=== PATIENT | female | born 1970 | race Caucasian/White ===

== ENCOUNTER → 2016-08-28 | Outpatient (CLI) | payer OTHER ==
[~2016-08-28] MED LIST: ULTRAM PO; VOLTAREN50 MG PO
--- NOTE | ~2016-08-28 | MY29 ---
[facility] A Service of [facility] & [facility] RADIOLOGY TEXT RESULTS PATIENT: BETTE BRANHAM LOCATION: [facility] : 72 UNIT #: [id number] AGE: [address]: Alberto Boyle MD SEX: F ORDER DR: [id number] [facility] [address] [place], [place] [address] [id number] O MR#: [id number] Acc #: [id number] NAME: BETTE BRANHAM : 1970 SEX: F STUDY DATE/TIME: 08/28/2016 13:39 UNIT: [facility] ROOM: STUDY DESCRIPTION: MY PARRIS SCREENING W/ CAD BILAT Attending Physician: Alberto Boyle M.D. Referring Physician: Alberto Boyle M.D. Ordering Physician: Alberto Boyle M.D. Primary Care Physician: Alberto Boyle M.D. MEDICAL IMAGING REPORT This report is preliminary unless electronic signature is present EXAM Digital screening mammogram 08/28/2016. [facility] HISTORY 46-year-old woman positive family history, mother age 65. Patient presently on hormones. Annual screening. COMPARISON: 04/01/2015 FINDINGS Digital imaging of each breast was completed utilizing screening protocol. Review includes FDA-approved CAD device. Breast parenchyma is moderately dense with subareolar duct prominence in each breast. Focal suggestion of a stellate opacity centrally located left breast and visualized on the MLO projection only. I expect this represents summation artifact. It will require additional imaging however to include an exaggerated craniocaudal view, true lateral projection and high-resolution spot views. Target ultrasound will be performed if indicated at the time. Fibroglandular opacities in the right breast are stable. IMPRESSION Incomplete mammographic evaluation. Additional left breast imaging is recommended. See full report with recommendations. Patients over the age of 40 are entered into a reminder system with target due date for the next mammogram. A result letter will also be sent to the patient. BIRADS: 0 - Incomplete Needs additional imaging evaluation and/or prior mammograms for comparison. Additional left breast imaging recommended. [facility] A Service of [facility] & [facility] RADIOLOGY TEXT RESULTS PATIENT: BETTE BRANHAM [id number] 72 UNIT #: [id number] AGE: [address]: Alberto Boyle MD SEX: F ORDER DR: Dictated by... Jem Walker M.D. THIS IS AN ELECTRONICALLY VERIFIED REPORT Jem Walker M.D. at 08/29/2016 8:58 AM SONIA/nickolas TD: 08/29/2016 08:43 JOB #: [id number] MEDICAL IMAGING REPORT Page 1 of 1 COPY
== END | disposition home or self-care (01) ==
LOC: CWCC 12:58
DX: Z12.31 Encounter for screening mammogram for malignant neoplasm of breast (principal); Z80.3 Family history of malignant neoplasm of breast; R92.8 Other abnormal and inconclusive findings on diagnostic imaging of breast; Z79.890 Hormone replacement therapy
CPT/HCPCS: G0202